=== PATIENT | male | born 1945 | race Caucasian/White ===

== ENCOUNTER → 2017-09-26 | Outpatient (CLI) | payer MEDICARE | END | disposition home or self-care (01) | LOC: CDC 15:12 | DX: Z01.810 Encounter for preprocedural cardiovascular examination (principal); K42.9 Umbilical hernia without obstruction or gangrene; I48.91 Unspecified atrial fibrillation | CPT/HCPCS: 93000 ==

== ENCOUNTER 2017-10-14 09:43 | Day surgery (SDC) | payer OTHER ==
[~2017-10-14] VITALS: Ht 172.7 cm; Wt 88.4 kg
[~2017-10-14 09:43] MED LIST: MEVACOR20 MG PO; PRINIVIL20 MG PO
[2017-10-14 10:13] LABS: BASOPHIL COUNT 0.1 K/uL (0-0.1); EOSINOPHIL (%) 2.7 % (0-5); EOSINOPHIL COUNT 0.2 K/uL (0-0.3); HEMATOCRIT 52.9 % (38.0-50.0); IMMATURE GRANULOCYTE (%) 0.2 % (0.0-0.7); INSTRUMENT ABS NEUTROPHIL CT 3.3 K/uL; LYMPHOCYTE COUNT 1.7 K/uL (1.0-2.8); MCH 32.4 PG (29.0-34.0); MCHC 33.5 G/DL (30.0-36.0); MCV 96.7 FL (86-99); MEAN PLAT.VOLUME 9.7 uM^3 (9.0-12.4); MONOCYTE (%) 9.5 % (3-12); MONOCYTE COUNT 0.6 K/uL (0-0.8); NEUTROPHIL (%) 56.9 % (45-76); NEUTROPHIL COUNT 3.3 K/uL (1.8-6.4); PLATELET COUNT 245 K/uL (156-360); RBC DIS.WIDTH-CV 12.4 % (11.8-14.6); RBC DIS.WIDTH-SD 45.1 % (39-53); RED BLOOD COUNT 5.47 M/uL (4.00-5.50); WHITE BLOOD COUNT 5.9 K/uL (4.1-10.2)
[2017-10-14 10:19] VITALS: BP 138/96
[2017-10-14 10:23] LABS: PROTHROMBIN TIME 11.4 SEC (10.2-12.9)
[2017-10-14] MEDS ORDERED: COLACE100 MG PO (14:20)
[2017-10-14] MEDS ORDERED: HYDROCODON-ACE1 EAC7 PO (14:20)
[2017-10-14 14:50] VITALS: BP 190/108
[2017-10-14 15:46] VITALS: BP 176/90
== END 2017-10-14 15:55 | disposition home or self-care (01) ==
LOC: SDC 09:43
PROVIDERS: Thoracic Surgery (Cardiothoracic Vascular Surgery)
PROC: 0WUF0JZ Supplement Abdominal Wall with Synthetic Substitute, Open Approach (ICD-10-PCS; principal; 2017-10-14)
DX: K42.0 Umbilical hernia with obstruction, without gangrene (principal); I10 Essential (primary) hypertension; R94.31 Abnormal electrocardiogram [ECG] [EKG]; E78.5 Hyperlipidemia, unspecified; F17.200 Nicotine dependence, unspecified, uncomplicated
CPT/HCPCS: 85025; 85610; C1781; J0131; J0690; J0696; J1100; J1170; J2250; J2405; J2710; J3010; J7050